=== PATIENT | female | born 1960 | race Caucasian/White ===

== ENCOUNTER 2017-03-10 13:12 | Emergency (ER) | payer OTHER ==
[~2017-03-10] VITALS: Ht 162.6 cm; Wt 95.4 kg
[~2017-03-10 13:12] MED LIST: CELEBREX200 MG; CELEBREX200 MG PO; HYDROCODON-ACE1 EAC7 PO; Halfprin PO; NORCO 5/3251 TABLET PO; SENNA-TIME S T1 EACH PO; VICODIN,LORT1 TABLET; Vicodin,Lortab 5/500 PO
[2017-03-10 14:18] LABS: HEMATOCRIT 42.7 % (36.0-46.0); MCH 28.9 PG (29.0-34.0); MCV 87.5 FL (83-99); RBC DIS.WIDTH-CV 12.9 % (11.8-14.6); RBC DIS.WIDTH-SD 41.5 % (39-53); RED BLOOD COUNT 4.88 M/uL (3.80-5.20); WHITE BLOOD COUNT 10.4 K/uL (4.1-10.2)
[2017-03-10 14:25] LABS: CHLORIDE 103 mEq/L (99-109); POTASSIUM 3.8 mEq/L (3.7-5.4); SODIUM 139 mEq/L (136-147)
[2017-03-10 14:27] LABS: GLUCOSE 94 mg/dL (70-99)
[2017-03-10 14:28] LABS: ANION GAP 8 MEQ/L (2-14)
[2017-03-10 14:31] LABS: GFR ESTIMATE (CALCULATED) > 59 mL/min/
[2017-03-10 14:32] LABS: UREA NITROGEN (BUN) 17 mg/dL (9-23)
[2017-03-10 14:39] LABS: TROP-I INTERPRETATION NEGATIVE; TROPONIN-I < 0.01 ng/mL (0.0-0.30)
[2017-03-10] MEDS ORDERED: HYDROCODON-ACE1 EAC8 PO (14:52)
[2017-03-10] MEDS ORDERED: ESCITALOPRAM OX10 MG PO (14:53)
[2017-03-10] MEDS ORDERED: LO-DOSE ASPIRIN81 M2 PO (14:53)
[2017-03-10 14:56] LABS: PLAT.SUFFICIENCY ADEQUATE; PLATELET COUNT 264 K/uL (156-360)
[2017-03-10 15:49] LABS: D-DIMER ELISA 0.54 mg/L FEU (< 0.57)
[2017-03-10 18:31] LABS: TROP-I INTERPRETATION NEGATIVE; TROPONIN-I < 0.01 ng/mL (0.0-0.30)
[2017-03-10 19:32] VITALS: BP 121/73
== END 2017-03-10 19:33 | disposition home or self-care (01) ==
LOC: EME 13:12
PROVIDERS: Emergency Medicine
DX: R07.89 Other chest pain (principal); Z87.891 Personal history of nicotine dependence
CPT/HCPCS: 71020; 80048; 83880; 84484; 85027; 85379; 93005; 99281; 99285

== ENCOUNTER → 2018-05-10 | Outpatient (CLI) | payer OTHER ==
[~2018-05-10] VITALS: Ht 162.6 cm; Wt 97.5 kg
[~2018-05-10] MED LIST changes: +ANORO ELLIPTA1 EACH IH; +CYMBALTA60 MG PO; +ESCITALOPRAM OX10 MG PO; +HYDROCODON-ACE1 EAC8 PO; +LEXAPRO20 MG PO; +LIDOPAC1 EACH TP; +LO-DOSE ASPIRIN81 M2 PO; +VICODIN ES 7.51 EAC1 PO
== END | disposition home or self-care (01) ==
LOC: AMB 11:29
PROC: 0DBL8ZX Excision of Transverse Colon, Via Natural or Artificial Opening Endoscopic, Diagnostic (ICD-10-PCS; principal; 2018-05-10)
DX: Z12.11 Encounter for screening for malignant neoplasm of colon (principal); Z80.0 Family history of malignant neoplasm of digestive organs; D12.3 Benign neoplasm of transverse colon; K64.8 Other hemorrhoids; J44.9 Chronic obstructive pulmonary disease, unspecified; Z88.0 Allergy status to penicillin; Z88.5 Allergy status to narcotic agent; Z88.6 Allergy status to analgesic agent; Z79.82 Long term (current) use of aspirin; Z87.891 Personal history of nicotine dependence
CPT/HCPCS: 88305